=== PATIENT | male | born 1975 | race Two or more races ===

== ENCOUNTER 2025-03-01 17:54 | Emergency (ER) | payer OTHER ==
[~2025-03-01] VITALS: Ht 182.9 cm; Wt 82.0 kg
[2025-03-01 17:55] VITALS: BP 146/88; PULSE 78; RESP 16; TEMP 97; O2SAT 98
--- NOTE | 2025-03-01 18:20 | ED.PDOC ---
GI ASSESSMENT HPI Comments 49-year-old male presents to the ED chief complaint status post meth use. Patient states he used meth 24 hours ago and now is having some nausea and vomiting. Denies diarrhea, fever, chills, chest pain, shortness of breath, or difficulty breathing. Chief Complaint: Headache Time Seen by MD: 18:02 Primary Care Provider: UNKNOWN Reviewed Notes: Nurses Notes, Medications, Allergies Allergies: Coded Allergies: NO KNOWN ALLERGIES (Unverified , 03/01/25) Information Source: Patient Mode of Arrival: Ambulatory Past Medical History PAST MEDICAL HISTORY: HTN Surgical History: Denies all surgeries Family History Family History: Reviewed,noncontributory to illness Social History Smoker: Cigarettes Alcohol: Denies ETOH Use Drugs: Denies Drug Use Lives In: Home All Other Systems: Reviewed and Negative (SEE HPI) Physical Exam General Appearance: No Apparent Distress, Normal HEENT: Normal ENT Inspection, Pharynx Normal, TMs Normal Neck: Full Range of Motion, Non-Tender Respiratory: Chest Non-Tender, Lungs Clear, No Accessory Muscle Use, No Respiratory Distress, Normal Breath Sounds Cardiovascular: No Edema, No JVD, No Murmur, No Gallop, Normal Peripheral Pulses, Regular Rate/Rhythm Breast Exam: Deferred Gastrointestinal: No Organomegaly, Non Tender, No Pulsatile Mass, Normal Bowel Sounds, Soft Genitalia: Deferred Pelvic: Deferred Rectal: Deferred Extremities: Normal capillary refill, Normal range of motion, No pedal edema Musculoskeletal : Apperance: Normal Neurologic: Alert, No Motor Deficits, Normal Affect, Normal Mood, No Sensory Deficits Cerebellar Function: Normal Reflexes: NOT DONE Skin: Dry, Normal Color, Warm Lymphatic: No Adenopathy Was a procedure done? Was a procedure done?: No GI differential Dx Differential Diagnosis: Gastritis/PUD, Gastroenteritis, Food Poisoning, Bacterial, Viral X-Ray, Labs, Meds, VS Vital Signs Date Time Temp Pulse Resp B/P (MAP) Pulse Ox O2 Delivery O2 Flow Rate FiO2 03/01/25 17:55 97.0 78 16 146/88 98 97.0 Current Medications Medications (Trade) Dose Ordered Sig/Sumanth Route Start Time Stop Time Status Last Admin Ondansetron HCl (Zofran) 4 mg ONCE ONCE IM 03/01/25 18:15 03/01/25 18:16 DC 03/01/25 18:36 Ketorolac Tromethamine (Toradol Injection) 60 mg ONCE ONCE IM 03/01/25 18:15 03/01/25 18:16 DC 03/01/25 18:36 X-Ray, Labs, Meds, VS Comment Patient's vital signs stable normotensive normal sinus rhythm. Patient was given Zofran 4 mg IM and Toradol 60 mg IM for headache. Patient states improvement requesting discharge at this time. Advised to rest increase p.o. fluids with electrolytes [id number] Tylenol or Motrin as needed per labeled dosing instructions. Advised to refrain from the use of meth or any illicit drug use. Advised to follow up with his PCP in 2-3 days as necessary ER return precautions given patient indicates understanding agrees with discharge plan of care Time of 1ST Reevaluation: 18:02 Reevaluation 1ST: Unchanged Time of 2ND Reevaluation: 18:19 Reevaluation 2ND: Improved Patient Education/Counseling: Diagnosis, Treatment, Prognosis, Need For Follow Up Family Education/Counseling: No Family Present SEPSIS Sepsis Screen Date sepsis recognized/suspect: Mar 01, 2025 Time Sepsis recognized/suspect: 1756 Recent Procedure: No On Antibiotic Therapy: No Respiratory Rate >20: No Heart Rate >90: No Temp<36 C (96.8 F) or >38.3 C: No SBP <90 or MAP <65 mmHG: No New Acute Mental Status Change: No Is the patient on CPAP, BIPAP,: No Vital Signs Date Time Temp Pulse Resp B/P (MAP) Pulse Ox O2 Delivery O2 Flow Rate FiO2 03/01/25 17:55 97.0 78 16 146/88 98 97.0 Medications Medications Dose Ordered Sig/Sumanth Route Start Time Stop Time Status Last Admin Dose Admin Ketorolac Tromethamine 60 mg ONCE ONCE IM 03/01/25 18:15 03/01/25 18:16 DC 03/01/25 18:36 Ondansetron HCl 4 mg ONCE ONCE IM 03/01/25 18:15 03/01/25 18:16 DC 03/01/25 18:36 Departure 1 Departure Time of Disposition: 18:19 Impression: Primary Impression: Nausea and vomiting Qualified Codes: R11.2 - Nausea with vomiting, unspecified Disposition: HOME / SELF CARE / HOMELESS Condition: Stable Discharged With: Self Critical Care Note Critical Care Time?: No Stability Stability form required: OLEKSANDR Fulton Mar 01, 2025 18:20
[2025-03-01] MEDS: KETOROLAC TROMETH 60MG/2ML VIAL IM ONE (18:36)
[2025-03-01] MEDS: ONDANSETRON HCL 4 MG/2 ML VIAL IM ONE (18:36)
== END 2025-03-01 19:04 | disposition home or self-care (01) ==
LOC: ER 17:54
DX: F15.90 Other stimulant use, unspecified, uncomplicated (principal); R11.2 Nausea with vomiting, unspecified; F17.210 Nicotine dependence, cigarettes, uncomplicated; I10 Essential (primary) hypertension
CPT/HCPCS: 96372; 99284; J1885; J2405